=== PATIENT | female | born 1955 | race Caucasian/White ===

== ENCOUNTER → 2020-02-19 | Outpatient (CLI) | payer MEDICAID ==
[~2020-02-19] MED LIST: ASPI-1497 MT; CLOP75TA4 PO; INSU100I24 SQ; INSU100I32 SQ; LISI40TA4 PO
== END | disposition home or self-care (01) ==
LOC: LAB 09:26
PROVIDERS: ATTEND Specialist
DX: R05 Cough (principal); Z20.828 Contact with and (suspected) exposure to other viral communicable diseases
CPT/HCPCS: C9803; U0003

== ENCOUNTER 2020-02-21 09:41 | Inpatient (IN) | payer MEDICAID ==
[2020-02-21] VITALS (8 sets, daily range): BP systolic 125–160; BP diastolic 58–88
[~2020-02-21] VITALS: Ht 165.1 cm; Wt 88.9 kg
[2020-02-21] MEDS ORDERED: FENTANYL CITRATE/PF 50MCG/ML 2ML VIAL ONE (10:41)
[2020-02-21] MEDS ORDERED: LIDOCAINE HCL 1% 20ML VIAL (Pyxis) INJ ONE (10:41)
[2020-02-21] MEDS ORDERED: MIDAZOLAM HCL 2 MG/2 ML VIAL ONE ×2 (10:41→12:20)
[2020-02-21] MEDS ORDERED: IODIXANOL 320MG/ML 100 ML BOTTLE IV ONE (10:42)
[2020-02-21] MEDS ORDERED: ASPI-1497 MT (11:25)
[2020-02-21] MEDS ORDERED: HEPARIN SODIUM 1,000 UNIT/1ML VIAL IV ONE (11:33)
[2020-02-21] MEDS ORDERED: LISI40TA4 PO (11:38)
[2020-02-21] MEDS ORDERED: CLOP75TA4 PO (11:38)
[2020-02-21] MEDS ORDERED: INSU100I24 SQ (11:38)
[2020-02-21] MEDS ORDERED: INSU100I32 SQ (11:38)
[2020-02-21] MEDS ORDERED: CLOPIDOGREL 75MG TABLET ONE (12:44)
[2020-02-21] MEDS ORDERED: ASPIRIN 325MG TABLET ONE (12:45)
[2020-02-21] MEDS ORDERED: ATROPINE SULFATE 1MG/10ML SYR IV PRN (13:00)
[2020-02-21] MEDS ORDERED: ACETAMINOPHEN 325MG TABLET PO PRN (13:00)
[2020-02-22 00:13] VITALS: BP 133/77
[2020-02-22 02:13] VITALS: BP 123/62
[2020-02-22 04:14] VITALS: BP 132/64
[2020-02-22 06:37] LABS: BASOPHILS % 1.1 % (0.0-2.0); EOSINOPHILS % 3.1 % (0.0-5.0); HEMATOCRIT. 35.6 % (36.0-48.0); HEMOGLOBIN. 11.8 g/dL (12.0-16.0); LYMPHOCYTES % 23.7 % (20.0-50.0); MEAN CORPUSCULAR HEMOGLOBIN 29.1 pg (28.0-32.0); MEAN CORPUSCULAR VOLUME 87.8 fL (81.0-99.0); MONOCYTES % 8.7 % (2.0-8.0); NEUTROPHILS % 63.4 % (40.0-76.0); PLATELET 243 x1000/uL (130-400); RED BLOOD CELL COUNT 4.06 mill/uL (4.2-5.4); RED CELL DISTRIBUTION WIDTH 15.3 % (11.6-14.6)
[2020-02-22 06:54] VITALS: BP 144/78
[2020-02-22 08:00] VITALS: BP 142/76
[2020-02-22] MEDS ORDERED: CLOPIDOGREL 75MG TABLET PO SCH (09:00)
[2020-02-22] MEDS ORDERED: ASPIRIN 325MG TABLET PO SCH (09:00)
[2020-02-22 10:12] VITALS: BP 142/76
== END 2020-02-22 11:22 | disposition home or self-care (01) | DRG 181 ==
LOC: CCL 09:41 → 3WST 09:42
PROVIDERS: ADMIT Specialist; ATTEND Specialist
PROC: 047K3DZ Dilation of Right Femoral Artery with Intraluminal Device, Percutaneous Approach (ICD-10-PCS; principal; 2020-02-21)
PROC: B41F1ZZ Fluoroscopy of Right Lower Extremity Arteries using Low Osmolar Contrast (ICD-10-PCS; 2020-02-21)
DX: I70.201 Unspecified atherosclerosis of native arteries of extremities, right leg (principal); E11.51 Type 2 diabetes mellitus with diabetic peripheral angiopathy without gangrene; I25.10 Atherosclerotic heart disease of native coronary artery without angina pectoris; E78.5 Hyperlipidemia, unspecified; I10 Essential (primary) hypertension; E66.09 Other obesity due to excess calories; Z86.73 Personal history of transient ischemic attack (TIA), and cerebral infarction without residual deficits; Z95.5 Presence of coronary angioplasty implant and graft; I25.2 Old myocardial infarction; Z68.32 Body mass index [BMI] 32.0-32.9, adult
CPT/HCPCS: 36415; 37226; 75710; 80048; 82962; 85025; 85347; C1725; C1760; C1769; C1893; C1894; J1644; J2250; J3010; J3490; Q9967